=== PATIENT | female | born 1960 | race Caucasian/White ===

== ENCOUNTER 2017-05-30 18:41 | Emergency (ER) | payer OTHER ==
[~2017-05-30] VITALS: Ht 157.5 cm; Wt 76.0 kg
[~2017-05-30 18:41] MED LIST: ALPR0.5T99 PO; AMIT50TA13 PO; BUPR150T3 PO; MACR100C PO; PYRI200T4 PO
[2017-05-30 18:45] VITALS: BP 143/79; PULSE 108; RESP 20; TEMP 98.6
[2017-05-30] MEDS ORDERED: HYDR-3534 PO (19:09)
[2017-05-30] MEDS ORDERED: MELO-1 PO (19:09)
[2017-05-30] MEDS ORDERED: XANA1TAB2 PO (19:09)
[2017-05-30] MEDS ORDERED: BUPR150CR PO (19:09)
[2017-05-30] MEDS ORDERED: AMIT50TA3 PO (19:09)
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
[2017-05-30] MEDS ORDERED: ROBA750T PO (19:30)
[2017-05-30] MEDS ORDERED: IBUP-232 PO (19:30)
== END 2017-05-30 19:37 | disposition home or self-care (01) ==
LOC: PHEFT 18:41
DX: S76.012A Strain of muscle, fascia and tendon of left hip, initial encounter (principal); G43.009 Migraine without aura, not intractable, without status migrainosus; V43.52XA Car driver injured in collision with other type car in traffic accident, initial encounter; Y92.410 Unspecified street and highway as the place of occurrence of the external cause
CPT/HCPCS: 99283

== ENCOUNTER 2017-10-08 13:57 | Day surgery (SDC) | payer OTHER ==
[~2017-10-08 13:57] MED LIST changes: -ALPR0.5T99 PO; -AMIT50TA13 PO; +AMIT50TA3 PO; +BUPR150CR PO; -BUPR150T3 PO; +HYDR-3534 PO; +IBUP-232 PO; -MACR100C PO; +MELO15TA20 PO; -PYRI200T4 PO; +ROBA750T PO; +XANA1TAB2 PO
[2017-10-08 14:27] VITALS: BP 128/86; PULSE 74; RESP 14; TEMP 98.6; O2SAT 97
--- NOTE | 2017-10-08 15:02 | PD.RAD ---
Post US Procedure Prog Note Pre Procedure Diagnosis: (1) Thyroid mass Post Procedure Diagnosis: (1) Thyroid mass Procedure Date: Oct 08, 2017 Supervising Radiologist: Toby Valdovnios Proceduralist/Assist: Cathy Falcon RDMS Anesthesia: Local Plan of Activity Patient to Unit: ROPU Patient Condition: Good See PACS Report for procedural detail/treatment Biopsy Imaging Guidance: Ultrasound Side: Left Biopsy Procedure: Thyroid Specimen: Fine Needle Aspirate Toby Valdovinos MD Oct 08, 2017 15:02
[2017-10-08 15:08] VITALS: BP 142/94; PULSE 103; RESP 20; TEMP 98.4; O2SAT 100
[2017-10-08] MEDS ORDERED: LIDOCAINE HCL 1% 20 ML VIAL ONE (15:09)
--- NOTE | 2017-10-08 15:10 | RADRPT ---
EXAM DATE/TIME: 10/08/2017 14:23 [facility] COMPARISON: No previous studies available for comparison. INDICATIONS : Left thyroid nodule. MEDICAL HISTORY : Abnormal liver function. Bipolar. PTSD. Menopause. SURGICAL HISTORY : Colonoscopy. Breast reduction. . ENCOUNTER: Initial ACUITY: 1 month PAIN SCORE: 0/10 LOCATION: Left neck ORGAN: Left thyroid lobe SPECIMENS: Five fine needle aspirate(s) submitted for pathologic evaluation. DEVICE: 25 gauge needle Post procedure scanning reveals no hematoma or other complication. The possibility does exist that the tissue obtained will be non-diagnostic. If the sample is non-ching gnostic a repeat biopsy or surgical biopsy may need to be performed. TECHNIQUE: 1. Ultrasound guidance for needle biopsy. 2. Needle biopsy. The risks, benefits and alternatives to the procedure were explained and verbal and written consent w as obtained. The site was prepped in sterile fashion. Full sterile technique was used, including ca p, mask, sterile gloves and gown and a large sterile sheet. Hand hygiene and 2% chlorhexidine and/or betadine/alcohol prep was utilized per protocol for cutaneous antisepsis. The skin and subcutaneous tissues were infiltrated with local anesthetic solution. Sterile gel and sterile probe cover were u tilized for ultrasound guidance. With the patient on the ultrasound table, images were obtained. A needle was advanced into the identified target and the number of specimens as above obtained and eastman bmitted for pathologic evaluation. The patient tolerated the procedure well and left the ultrasound suite in stable condition. CONCLUSION: Uncomplicated ultrasound guided needle biopsy of left thyroid mass. Tboy Valdovinos MD on October 08, 2017 at 15:07 Board Certified Radiologist. This report was verified electronically.
[2017-10-08 15:23] VITALS: BP 142/86; PULSE 100; RESP 20; O2SAT 96
== END 2017-10-08 15:51 | disposition home or self-care (01) ==
LOC: HRAD 13:57
PROVIDERS: ATTEND Family Medicine
DX: E04.1 Nontoxic single thyroid nodule (principal)
CPT/HCPCS: 10022; 76942; 88172; 88173